=== PATIENT | female | born 2000 | race Hispanic/Latino ===

== ENCOUNTER 2024-01-20 14:17 | Emergency (ER) | payer OTHER, SELFPAY ==
[2024-01-20 15:17] LABS: Bilirubin Neg (Negative); Blood, Urine 10 (Negative); Clarity Cloudy (Clear); Glucose, Urine (Dipstick) Normal (Negative); Ketone, Urine Negative (Negative); Leukocyte 25 (Negative); Nitrite Negative (Negative); Protein, Urine (Dipstick) 15 mg/dl (Neg-Trace)
[2024-01-20 15:35] LABS: CAUTI Indications for Culture Pelvic or flank pain; RBC/HPF 0-3 HPF (0-3)
[2024-01-20 15:36] LABS: Bacteria/HPF 2+ HPF (None Seen); Mucous/LPF 1+ LPF (<2+)
[2024-01-20 15:37] LABS: Urine Culture Reflex No No
[2024-01-20 16:06] LABS: #Basophils 0.05 10x3/uL (0.0-0.2); #Eosinphils 0.09 10x3/uL (0.0-0.5); #Monocytes 0.73 10x3/uL (0.0-1.1); #Neutrophils 6.69 10x3/uL (1.5-8.4); %Basophils 0.5 % (0.0-2.0); %Eosinophils 0.9 % (0.0-6.0); %Lymphocytes 26.5 % (18.0-47.0); %Monocytes 7.1 % (0.0-10.0); %Neutrophils 64.6 % (40.0-75.0); Hematocrit 34.6 % (34.9-44.5); Hemoglobin 12.1 g/dL (12.0-15.5); Mean Corpuscular Hemoglobin 30.3 pg (27.0-33.0); Mean Corpuscular Volume 86.7 fL (81.6-98.3); Mean Platelet Volume 10.7 fL (7.4-10.4); Platelet Count 297 10x3/uL (150-450); RBC Distribution Width 13.7 % (11.5-14.5); Red Blood Cell (RBC) Count 3.99 10x6/uL (3.90-5.03); White Blood Cell (WBC) Count 10.3 10x3/uL (3.5-10.5)
== END 2024-01-20 16:45 | disposition home or self-care (01) ==
LOC: CSHERS 14:17
DX: O99.891 Other specified diseases and conditions complicating pregnancy (principal); R82.71 Bacteriuria; Z3A.01 Less than 8 weeks gestation of pregnancy
CPT/HCPCS: 76856; 81001; 84702; 85025

== ENCOUNTER 2024-03-25 09:55 | Day surgery (SDC) | payer OTHER ==
[2024-03-25 09:35] LABS: Bilirubin Neg (Negative); Blood, Urine Negative (Negative); Clarity Clear (Clear); Glucose, Urine (Dipstick) Normal (Negative); Ketone, Urine Negative (Negative); Leukocyte Negative (Negative); Nitrite Negative (Negative); Protein, Urine (Dipstick) Negative (Neg-Trace); Urobilinogen Normal mg/dL (Less than 2)
[2024-03-25 10:20] VITALS: BMI 28.9
[2024-03-25 10:53] LABS: Bacteria/HPF 2+ HPF (None Seen); CAUTI Indications for Culture Pelvic or flank pain; RBC/HPF 0-3 HPF (0-3); Squamous Epithelial 21-50 HPF (0-3); WBC/HPF 0-3 HPF (0-3)
[2024-03-25 10:54] LABS: Urine Culture Reflex No No
== END 2024-03-25 12:37 | disposition home or self-care (01) ==
LOC: CSHLD/OP 09:55 → EDSTATUS 09:56 → CSHLD/OP 12:37
PROVIDERS: ATTEND Obstetrics & Gynecology
DX: O9A.212 Injury, poisoning and certain other consequences of external causes complicating pregnancy, second trimester (principal); Z36.89 Encounter for other specified antenatal screening; O00.01 Abdominal pregnancy with intrauterine pregnancy; V49.40XA Driver injured in collision with unspecified motor vehicles in traffic accident, initial encounter; Z79.899 Other long term (current) drug therapy; Z3A.20 20 weeks gestation of pregnancy
CPT/HCPCS: 76815; 81001; 99282

== ENCOUNTER 2024-04-27 21:09 | Day surgery (SDC) | payer OTHER ==
[2024-04-27 21:27] VITALS: BMI 33.0
[2024-04-27 22:04] LABS: Bilirubin Neg (Negative); Blood, Urine Negative (Negative); Clarity Clear (Clear); Glucose, Urine (Dipstick) Normal (Negative); Ketone, Urine Negative (Negative); Leukocyte Negative (Negative); Nitrite Negative (Negative); Protein, Urine (Dipstick) Negative (Neg-Trace); Specific Gravity, Urine 1.005 (1.005-1.030); Urobilinogen Normal mg/dL (Less than 2); pH, Urine 6.5 (5.0-9.0)
[2024-04-27 22:16] LABS: Bacteria/HPF 1+ HPF (None Seen); CAUTI Indications for Culture Pregnancy; RBC/HPF 0-3 HPF (0-3); Squamous Epithelial 0-3 HPF (0-3); WBC/HPF 0-3 HPF (0-3)
[2024-04-27 22:18] LABS: Urine Culture Reflex Yes Yes
== END 2024-04-27 22:30 | disposition home or self-care (01) ==
LOC: CSHLD/OP 21:09
PROVIDERS: ATTEND Family Medicine
DX: O26.852 Spotting complicating pregnancy, second trimester (principal); O99.891 Other specified diseases and conditions complicating pregnancy; R10.9 Unspecified abdominal pain; O21.2 Late vomiting of pregnancy; Z79.82 Long term (current) use of aspirin; Z79.899 Other long term (current) drug therapy; Z3A.24 24 weeks gestation of pregnancy
CPT/HCPCS: 81001; 87086; 87480; 87510; 87660; 99283

== ENCOUNTER 2024-06-30 23:19 | Day surgery (SDC) | payer OTHER ==
[2024-06-30 23:45] VITALS: BMI 33.8
[2024-06-30] MEDS ORDERED: hydrALAZINE 20 MG/ML VIAL SLOW IVP PRN (23:58)
[2024-07-01 00:35] LABS: #Basophils 0.06 10x3/uL (0.0-0.2); #Eosinophils 0.17 10x3/uL (0.0-0.5); #Monocytes 1.14 10x3/uL (0.0-1.1); #Neutrophils 7.05 10x3/uL (1.5-8.4); %Basophils 0.5 % (0.0-2.0); %Eosinophils 1.4 % (0.0-6.0); %Lymphocytes 26.8 % (18.0-47.0); %Monocytes 9.7 % (0.0-10.0); %Neutrophils 60.1 % (40.0-75.0); Hematocrit 30.1 % (34.9-44.5); Hemoglobin 10.8 g/dL (12.0-15.5); Mean Corpuscular HGB CONC 35.9 g/dL (32.0-36.0); Mean Corpuscular Hemoglobin 30.9 pg (27.0-33.0); Mean Corpuscular Volume 86.2 fL (81.6-98.3); Mean Platelet Volume 9.9 fL (7.4-10.4); Platelet Count 326 10x3/uL (150-450); RBC Distribution Width 13.2 % (11.5-14.5); Red Blood Cell (RBC) Count 3.49 10x6/uL (3.90-5.03); White Blood Cell (WBC) Count 11.8 10x3/uL (3.5-10.5)
[2024-07-01 00:39] LABS: Creatinine, Urine 35.42 mg/dL (47-110); Protein, Urine Random Quant Less than 10 mg/dL (1-14)
[2024-07-01 00:43] LABS: ALT (SGPT) 22 U/L (8-55); AST (SGOT) 36 U/L (5-34); Albumin 2.8 g/dL (3.5-5.0); Alkaline Phosphatase 148 U/L (40-110); Anion Gap 14 mmol/L (10-20); BUN (Urea Nitrogen) 5 mg/dL (7.0-18.7); Bilirubin, Total 0.4 mg/dL (0.2-1.2); Calc. Creatinine Clearance 181 mL/min (70-130); Carbon Dioxide 19 mmol/L (22-29); Chloride 109 mmol/L (98-107); Estimated GFR 128; Globulin 3.7 g/dL (2.4-3.5); Glucose 84 mg/dL (70-105); Protein, Total 6.5 g/dL (6.0-8.3); Sodium 139 mmol/L (136-145)
[2024-07-01 00:46] LABS: Critical Call Chemistry NUR.RRM1@0046; Potassium 2.5 mmol/L (3.5-5.1)
[2024-07-01] MEDS: Potassium Chloride 20 MEQ TAB PO SCH (01:14)
[2024-07-01 10:04] LABS: ALT (SGPT) 20 U/L (8-55); AST (SGOT) 32 U/L (5-34); Albumin 2.5 g/dL (3.5-5.0); Alkaline Phosphatase 138 U/L (40-110); Anion Gap 10 mmol/L (10-20); BUN (Urea Nitrogen) 4 mg/dL (7.0-18.7); Bilirubin, Total 0.3 mg/dL (0.2-1.2); Calc. Creatinine Clearance 190 mL/min (70-130); Calcium 8.6 mg/dL (7.8-10.44); Carbon Dioxide 20 mmol/L (22-29); Chloride 110 mmol/L (98-107); Estimated GFR 130; Globulin 3.4 g/dL (2.4-3.5); Glucose 98 mg/dL (70-105); Potassium 3.1 mmol/L (3.5-5.1); Protein, Total 5.9 g/dL (6.0-8.3); Sodium 137 mmol/L (136-145)
[2024-07-01] MEDS: Potassium Chloride 10 MEQ TAB PO SCH (11:02)
== END 2024-07-01 11:02 | disposition home or self-care (01) ==
LOC: CSHLD/OP 23:19
PROVIDERS: ATTEND Family Medicine
DX: O46.93 Antepartum hemorrhage, unspecified, third trimester (principal); O47.03 False labor before 37 completed weeks of gestation, third trimester; O99.283 Endocrine, nutritional and metabolic diseases complicating pregnancy, third trimester; E87.6 Hypokalemia; Z3A.34 34 weeks gestation of pregnancy; Z79.899 Other long term (current) drug therapy; Z79.82 Long term (current) use of aspirin
CPT/HCPCS: 36415; 76819; 80053; 82570; 84156; 85025; 99285

== ENCOUNTER 2024-07-30 22:08 | Inpatient (IN) | payer OTHER, MEDICAID ==
[~2024-07-30 22:08] MED LIST: Bupivacaine PF 0.5% 30 ML VIAL ONE; Bupivacaine/Epinephrine 0.25% 30 ML VIAL ONE
[2024-07-30 22:22] VITALS: BMI 32.9
[2024-07-30] MEDS ORDERED: hydrALAZINE 20 MG/ML VIAL SLOW IVP PRN ×4 (23:18→23:35)
[2024-07-30] MEDS ORDERED: Promethazine HCl 25 MG/ML VIAL IM PRN (23:35)
[2024-07-30] MEDS ORDERED: Calcium Gluc 4.6 MEQ/10 ML (100 MG/ML) SLOW IVP PRN (23:35)
[2024-07-30] MEDS ORDERED: Acetaminophen 500 MG TAB PO PRN (23:35)
[2024-07-30] MEDS ORDERED: Labetalol HCl 100 MG/20 ML VIAL SLOW IVP PRN ×2 (23:35)
[2024-07-30] MEDS ORDERED: Tranexamic Acid 1,000 MG/10 ML VIAL IVP PRN (23:35)
[2024-07-30] MEDS ORDERED: Misoprostol 200 MCG TAB PR PRN (23:35)
[2024-07-30] MEDS ORDERED: Carboprost 250 MCG/ML AMP IM PRN (23:35)
[2024-07-30] MEDS ORDERED: Diphenoxylate HCl/Atropine Tablet PO PRN (23:35)
[2024-07-30] MEDS ORDERED: Lidocaine 1% (PF) 30 ML VIAL SC PRN (23:35)
[2024-07-30] MEDS ORDERED: Lorazepam 2 MG/ML VIAL SLOW IVP PRN (23:35)
[2024-07-30] MEDS ORDERED: Ibuprofen 800 MG TAB PO PRN (23:35)
[2024-07-30] MEDS ORDERED: Ondansetron PF 4 MG/2 ML Vial IVP PRN (23:35)
[2024-07-30] MEDS ORDERED: Lactated Ringer's 1,000 ML IV SCH (23:45)
[2024-07-30] MEDS ORDERED: Oxytocin 30 units/NS 500 ML 500 ML IV SCH ×2 (23:45)
[2024-07-31 00:46] LABS: #Basophils 0.04 10x3/uL (0.0-0.2); #Eosinophils 0.06 10x3/uL (0.0-0.5); #Monocytes 0.73 10x3/uL (0.0-1.1); #Neutrophils 7.65 10x3/uL (1.5-8.4); %Basophils 0.4 % (0.0-2.0); %Eosinophils 0.5 % (0.0-6.0); %Lymphocytes 21.3 % (18.0-47.0); %Monocytes 6.7 % (0.0-10.0); %Neutrophils 69.7 % (40.0-75.0); Hematocrit 32.4 % (34.9-44.5); Hemoglobin 11.3 g/dL (12.0-15.5); Mean Corpuscular HGB CONC 34.9 g/dL (32.0-36.0); Mean Corpuscular Hemoglobin 30.4 pg (27.0-33.0); Mean Corpuscular Volume 87.1 fL (81.6-98.3); Mean Platelet Volume 10.4 fL (7.4-10.4); Platelet Count 326 10x3/uL (150-450); RBC Distribution Width 13.2 % (11.5-14.5); Red Blood Cell (RBC) Count 3.72 10x6/uL (3.90-5.03)
[2024-07-31 01:00] LABS: ALT (SGPT) 14 U/L (8-55); AST (SGOT) 19 U/L (5-34); Alkaline Phosphatase 190 U/L (40-110); Anion Gap 14 mmol/L (10-20); BUN (Urea Nitrogen) 5 mg/dL (7.0-18.7); Bilirubin, Total 0.4 mg/dL (0.2-1.2); Calc. Creatinine Clearance 162 mL/min (70-130); Calcium 9.1 mg/dL (7.8-10.44); Carbon Dioxide 16 mmol/L (22-29); Chloride 111 mmol/L (98-107); Estimated GFR 124; Globulin 3.8 g/dL (2.4-3.5); Glucose 97 mg/dL (70-105); Potassium 3.1 mmol/L (3.5-5.1); Protein, Total 6.8 g/dL (6.0-8.3); Sodium 138 mmol/L (136-145)
[2024-07-31 01:20] LABS: Syphilis Antibody Nonreactive (Nonreactive); Syphilis Antibody Index 0.03 S/CO (<1.00 Non-Reactive)
[2024-07-31 01:21] LABS: HBsAg Index 0.21 S/CO (0-0.99); Hep B Surf Ag - L&D Non-Reactive S/CO (NonReactive)
[2024-07-31 01:52] LABS: Creatinine, Urine 98.63 mg/dL (47-110)
[2024-07-31] MEDS: Misoprostol 100 MCG TAB VAG SCH (02:56)
[2024-07-31] MEDS: fentaNYL 50 mcg/mL 1 mL Vial SLOW IVP SCH (13:29)
[2024-07-31] MEDS ORDERED: fentaNYL 50 mcg/mL 1 mL Vial SLOW IVP SCH (13:30)
[2024-07-31] MEDS: fentaNYL/Ropivacaine Epidural 100 ML ONE (14:58)
[2024-07-31] MEDS ORDERED: Lactated Ringer's 500 ML IV PRN (15:03)
[2024-07-31] MEDS ORDERED: Acetaminophen 325 MG TAB PO PRN (15:03)
[2024-07-31] MEDS ORDERED: Ondansetron PF 4 MG/2 ML Vial IVP PRN ×2 (15:03→23:30)
[2024-07-31] MEDS ORDERED: Naloxone HCl 0.4 mg/ml Vial IVP PRN ×2 (15:03)
[2024-07-31] MEDS ORDERED: Promethazine HCl 25 MG/ML VIAL IM PRN ×2 (15:03→23:30)
[2024-07-31] MEDS ORDERED: diphenhydrAMINE 50 MG/ML VIAL IVP PRN ×2 (15:03→23:30)
[2024-07-31] MEDS ORDERED: Moisturizing Cream (Eucerin) 113 GM JAR TOP PRN (15:03)
[2024-07-31] MEDS ORDERED: ePHEDrine Sulfate 50 MG/10 ML VIAL SLOW IVP PRN (15:03)
[2024-07-31] MEDS ORDERED: Communication Order-Pharmacy FS SCH (15:15)
[2024-07-31] MEDS: Morphine 4 MG/ML VIAL SLOW IVP SCH (23:08)
[2024-07-31] MEDS: fentaNYL 2 mcg/Ropivacaine 0.2% Epidural 100 ML CADD EPIDURAL SCH (23:22)
[2024-07-31] MEDS ORDERED: FENTANYL 500 MCG/10 ML VIAL 2,000 MCG in Sodium Chloride 0.9% 60 ML IV PRN (23:30)
[2024-07-31] MEDS ORDERED: Communication Order-Pharmacy FS PRN (23:30)
[2024-07-31] MEDS ORDERED: diphenhydrAMINE 50 MG/ML VIAL IM PRN (23:30)
[2024-07-31] MEDS ORDERED: Naloxone HCl 0.4 mg/ml Vial IV PRN (23:30)
[2024-07-31] MEDS ORDERED: diphenhydrAMINE 25 MG CAP PO PRN (23:30)
[2024-08-01] MEDS: FENTANYL 1,000 MCG/20 ML VIAL 1,000 MCG in Sodium Chloride 0.9% 30 ML IV PRN
[2024-08-01] MEDS: Oxytocin 30 units/NS 500 ML 500 ML IV SCH (00:32)
[2024-08-01] MEDS ORDERED: Famotidine/PF 20 mg/2ml Vial SLOW IVP PRN (08:30)
[2024-08-01] MEDS ORDERED: Bicitra 30 ML UDCUP PO PRN (08:30)
[2024-08-01] MEDS ORDERED: Azithromycin 500 MG in Sodium Chloride 0.9% 250 ML 250 ML IVPB SCH (08:30)
[2024-08-01] MEDS ORDERED: CEFAZOLIN 2 GM in Sodium Chloride 0.9% 100 ML IVPB SCH (08:30)
[2024-08-01] MEDS ORDERED: Lanolin Ointment 7 GM TUBE TOP PRN (09:34)
[2024-08-01] MEDS ORDERED: hydrALAZINE 20 MG/ML VIAL SLOW IVP PRN (09:34)
[2024-08-01] MEDS ORDERED: Bisacodyl 10 MG SUPP PR PRN (09:34)
[2024-08-01] MEDS ORDERED: Simethicone Chewable 80 MG TAB PO PRN (09:34)
[2024-08-01] MEDS ORDERED: Promethazine HCl 25 MG/ML VIAL IM PRN (09:52)
[2024-08-01] MEDS ORDERED: Moisturizing Cream (Eucerin) 113 GM JAR TOP PRN (09:52)
[2024-08-01] MEDS ORDERED: Naloxone HCl 0.4 mg/ml Vial IV PRN (09:52)
[2024-08-01] MEDS ORDERED: Meperidine HCl/PF 25 MG (1 mL) VIAL SLOW IVP PRN (09:52)
[2024-08-01] MEDS ORDERED: Naloxone HCl 0.4 mg/ml Vial IVP PRN ×2 (09:52)
[2024-08-01] MEDS ORDERED: HYDROmorphone 0.5 MG/0.5 ML SYRINGE SLOW IVP PRN (09:52)
[2024-08-01] MEDS ORDERED: Ondansetron PF 4 MG/2 ML Vial IVP PRN ×2 (09:52)
[2024-08-01] MEDS ORDERED: fentaNYL 50 mcg/mL 1 mL Vial SLOW IVP PRN (09:52)
[2024-08-01] MEDS ORDERED: Ketorolac Tromethamine 30 MG (1 mL) VIAL IVP SCH (10:00)
[2024-08-01] MEDS ORDERED: Communication Order-Pharmacy FS SCH (10:00)
[2024-08-01] MEDS: Azithromycin 500 MG VIAL ONE (12:37)
[2024-08-01] MEDS: CEFAZOLIN 2 GM VIAL ONE (12:37)
[2024-08-01] MEDS: fentaNYL 50 mcg/mL 1 mL Vial ONE ×3 (12:37→12:38)
[2024-08-01] MEDS: Oxytocin 10 UNITS/ML VIAL ONE (12:37)
[2024-08-01] MEDS: PROPOFOL 0 ML ONE (12:38)
[2024-08-01] MEDS: Morphine PF 10 MG/10 ML VIAL ONE (12:38)
[2024-08-01] MEDS: Midazolam HCl 2 mg/2 ml Vial ONE (12:38)
[2024-08-01] MEDS: Fentanyl 250 MCG/5 ML VIAL ONE (12:38)
[2024-08-01] MEDS: SUCCINYLCHOLINE/SOD CL,ISO/PF 200 MG/10 ML SYRINGE FS ONE (12:38)
[2024-08-01] MEDS: Ondansetron PF 4 MG/2 ML Vial ONE (12:39)
[2024-08-01] MEDS: Dexmedetomidine 200 MCG/2 ML VIAL ONE (12:39)
[2024-08-01] MEDS: diphenhydrAMINE 50 MG/ML VIAL IVP PRN (12:43)
[2024-08-01] MEDS ORDERED: Ondansetron PF 4 MG/2 ML Vial ONE (14:26)
[2024-08-01] MEDS ORDERED: fentaNYL 50 mcg/mL 1 mL Vial ONE ×2 (14:26→14:57)
[2024-08-01] MEDS ORDERED: PROPOFOL 40 ML ONE (14:26)
[2024-08-01] MEDS ORDERED: Lidocaine 1% PF 5 ML VIAL ONE (14:26)
[2024-08-01] MEDS ORDERED: Dexamethasone 4 mg/ml Vial ONE (14:26)
[2024-08-01] MEDS: Ketorolac Tromethamine 30 MG (1 mL) VIAL IVP PRN (17:51)
[2024-08-01 19:04] LABS: Hematocrit 25.1 % (34.9-44.5); Hemoglobin 8.7 g/dL (12.0-15.5)
[2024-08-01] MEDS: Boostrix 0.5 ML (Tdap) VIAL (>/=7 yrs of age) IM ONE (19:50)
[2024-08-01] MEDS: Morphine 2 MG/ML VIAL SLOW IVP SCH (20:40)
[2024-08-01] MEDS ORDERED: HYDROcodone/Acetaminophen 5/325 mg Tablet PO PRN (22:01)
[2024-08-01] MEDS: Docusate 100 MG CAP PO SCH (22:32)
[2024-08-01] MEDS: Ferrous Sulfate 325 MG TAB PO SCH (22:32)
[2024-08-02 03:41] LABS: Hematocrit 24.7 % (34.9-44.5); Mean Corpuscular HGB CONC 32.4 g/dL (32.0-36.0); Mean Corpuscular Volume 89.5 fL (81.6-98.3); Mean Platelet Volume 9.9 fL (7.4-10.4); Platelet Count 261 10x3/uL (150-450); RBC Distribution Width 13.5 % (11.5-14.5); Red Blood Cell (RBC) Count 2.76 10x6/uL (3.90-5.03); White Blood Cell (WBC) Count 16.2 10x3/uL (3.5-10.5)
[2024-08-02] MEDS: HYDROcodone/Acetaminophen 5/325 mg Tablet PO PRN (08:27)
[2024-08-02] MEDS: Ibuprofen 800 MG TAB PO SCH ×2 (15:16→21:35)
[2024-08-03 12:24] VITALS: BP 134/85; TEMP 97.7
== END 2024-08-03 15:05 | disposition home or self-care (01) | DRG 787 ==
LOC: CSHLD/OP 22:08 → CSHLD 23:36 → UNDOADMIN 07-31 00:07 → CSHLD 08-01 10:01 → CSHPP 08-01 15:50
PROVIDERS: ADMIT Family Medicine; ATTEND Family Medicine
PROC: 10H07YZ Insertion of Other Device into Products of Conception, Via Natural or Artificial Opening (ICD-10-PCS; 2024-07-31)
PROC: 10D00Z1 Extraction of Products of Conception, Low, Open Approach (ICD-10-PCS; principal; 2024-08-01)
PROC: 0TJB8ZZ Inspection of Bladder, Via Natural or Artificial Opening Endoscopic (ICD-10-PCS; 2024-08-01)
DX: O99.02 Anemia complicating childbirth (principal); D62 Acute posthemorrhagic anemia; S37.29XA Other injury of bladder, initial encounter; Z3A.38 38 weeks gestation of pregnancy; Z37.0 Single live birth; Z79.82 Long term (current) use of aspirin; O13.4 Gestational [pregnancy-induced] hypertension without significant proteinuria, complicating childbirth; O62.1 Secondary uterine inertia; O99.893 Other specified diseases and conditions complicating puerperium; R31.0 Gross hematuria; X58.XXXA Exposure to other specified factors, initial encounter
CPT/HCPCS: 36415; 51702; 76819; 80053; 82570; 84156; 85014; 85018; 85025; 85027; 86780; 86850; 86900; 86901; 87340; 99285; J0665; J1100; J1200; J1885; J2250; J2272; J2274; J2405; J2590; J2704; J3010